=== PATIENT | male | born 1985 | race Caucasian/White ===

== ENCOUNTER 2022-07-26 13:28 | Outpatient (CLI) | payer OTHER | END 2022-07-26 13:29 | disposition home or self-care (01) | LOC: BICCT 13:28 | PROVIDERS: ATTEND Family Medicine | DX: R20.2 Paresthesia of skin (principal) | CPT/HCPCS: 70450 ==

== ENCOUNTER 2023-01-25 08:17 | Outpatient (CLI) | payer BC | END 2023-01-25 08:18 | disposition home or self-care (01) | LOC: BICRAD 08:17 | PROVIDERS: ATTEND Psychiatry & Neurology Neurology | DX: M48.02 Spinal stenosis, cervical region (principal) | CPT/HCPCS: 72040 ==

== ENCOUNTER 2024-01-11 07:48 | Emergency (ER) | payer OTHER ==
[2024-01-11] MEDS ORDERED: Ketorolac Tromethamine 30 MG (1 mL) VIAL ONE (08:07)
== END 2024-01-11 09:18 | disposition home or self-care (01) ==
LOC: ERS 07:48
DX: M25.561 Pain in right knee (principal); M25.461 Effusion, right knee
CPT/HCPCS: 96372; 99283; J1885

== ENCOUNTER → 2024-02-05 | Outpatient (CLI) | payer OTHER | LOC: MRI 13:06 | PROVIDERS: ATTEND Family Medicine | DX: M48.02 Spinal stenosis, cervical region (principal); S83.251A Bucket-handle tear of lateral meniscus, current injury, right knee, initial encounter; S70.11XA Contusion of right thigh, initial encounter; M47.26 Other spondylosis with radiculopathy, lumbar region; M51.16 Intervertebral disc disorders with radiculopathy, lumbar region; M48.061 Spinal stenosis, lumbar region without neurogenic claudication; M51.35 Other intervertebral disc degeneration, thoracolumbar region; M48.05 Spinal stenosis, thoracolumbar region; M47.815 Spondylosis without myelopathy or radiculopathy, thoracolumbar region; M47.817 Spondylosis without myelopathy or radiculopathy, lumbosacral region; M51.379 Other intervertebral disc degeneration, lumbosacral region without mention of lumbar back pain or lower extremity pain; M48.07 Spinal stenosis, lumbosacral region; M25.461 Effusion, right knee; M47.812 Spondylosis without myelopathy or radiculopathy, cervical region | CPT/HCPCS: 72141; 72148 ==

== ENCOUNTER 2024-02-27 13:51 | Outpatient (CLI) | payer OTHER ==
[2024-02-27 15:01] LABS: #Basophils 0.07 10x3/uL (0.0-0.2); %Basophils 0.9 % (0.0-1.0); %Eosinophils 1.6 % (0.0-10.0); %Lymphocytes 37.9 % (21.0-51.0); %Monocytes 7.8 % (0.0-10.0); %Neutrophils 51.6 % (42.0-75.0); Hematocrit 45.9 % (42.0-52.0); Hemoglobin 15.7 g/dL (14.0-18.0); Mean Corpuscular HGB CONC 34.2 g/dL (32.0-36.0); Mean Corpuscular Hemoglobin 28.8 pg (27.0-31.0); Mean Corpuscular Volume 84.1 fL (78.0-98.0); Mean Platelet Volume 10.3 fL (7.4-10.4); Platelet Count 265 10x3/uL (130-400); RBC Distribution Width 13.1 % (11.5-14.5); Red Blood Cell (RBC) Count 5.46 mill/uL (4.70-6.10)
== END 2024-02-27 13:52 | disposition home or self-care (01) ==
LOC: LABBT 13:51
PROVIDERS: ATTEND Orthopaedic Surgery
DX: Z01.818 Encounter for other preprocedural examination (principal); S83.251A Bucket-handle tear of lateral meniscus, current injury, right knee, initial encounter
CPT/HCPCS: 85025; 93005; 93010